=== PATIENT | female | born 1995 | race Caucasian/White ===

== ENCOUNTER 2025-05-01 11:02 | Emergency (ER) | payer SELFPAY ==
[2025-05-01] MEDS ORDERED: Ibuprofen 800 MG TAB ONE (11:52)
== END 2025-05-01 13:20 | disposition home or self-care (01) ==
LOC: ERS 11:02
DX: J02.9 Acute pharyngitis, unspecified (principal); I10 Essential (primary) hypertension; Z87.891 Personal history of nicotine dependence
CPT/HCPCS: 87081; 87428; 87430; 99283